=== PATIENT | male | born 1980 | race Caucasian/White ===

== ENCOUNTER 2019-12-04 21:28 | Emergency (ER) | payer SELFPAY ==
[~2019-12-04] VITALS: Ht 180.3 cm; Wt 97.0 kg
--- NOTE | 2019-12-04 22:00 | NUR ---
FIRST CONTACT WITH PT. PT REPORTS CONSTANT, SHARP EPIGASTRIC/RUQ PAIN X SEVERAL DAYS, PAIN RADIATES TO BACK. +NAUSEA. DENIES VOMITING/DIARRHEA/BLOOD IN EMESIS OR STOOL/FEVER. "I SIT ALL DAY AT WORK AND THAT SEEMS TO MAKE IT WORSE". HX OF JUN. PT REPORTS MODERATE ETOH USE, "I ROMERO FOR A LIVING- SO I DRINK THEN". BP/SPO2 MONITORING IN PLACE. VS WNL.
[2019-12-04 22:14] VITALS: BP 143/87
--- NOTE | 2019-12-04 22:21 | NUR ---
UA COLLECTED AND SENT TO LAB. PT CONTINUES TO DENY NEED FOR PAIN/NAUSEA MEDICATIONS.
[2019-12-04 22:29] LABS: MICROSCOPIC NOT IND
[2019-12-04 22:48] LABS: BASOPHILS # (AUTO) 0.04 x10^3/uL (0-0.1); BASOPHILS % (AUTO) 1 % (0-1); EOSINOPHILS # (AUTO) 0.13 x10^3/uL (0-0.4); EOSINOPHILS % (AUTO) 2 % (1-7); LYMPHOCYTES # (AUTO) 2.45 x10^3/uL (1-3.4); LYMPHOCYTES % (AUTO) 34 % (22-44); MD NO; MEAN CORPUSCULAR HEMOGLOBIN 29.9 pg (27.5-34.5); MEAN CORPUSCULAR HGB CONC 33.7 g/dL (33.2-36.2); MEAN CORPUSCULAR VOLUME 88.8 fL (81-97); MEAN PLATELET VOLUME 7.7 fL (7.4-10.4); MONOCYTES # (AUTO) 0.53 x10^3/uL (0.2-0.8); MONOCYTES % (AUTO) 7 % (2-9); NEUTROPHILS # (AUTO) 4.02 x10^3/uL (1.8-6.8); NEUTROPHILS % (AUTO) 56 % (42-75); PLATELET COUNT 262 x10^3/uL (130-400); RED BLOOD COUNT 4.89 x10^6/uL (4.38-5.82); RED CELL DISTRIBUTION WIDTH 12.7 % (9.4-14.8)
[2019-12-04 23:00] LABS: ALANINE AMINOTRANSFERASE 36 U/L (12-78); ANION GAP 6 mmol/L (5-15); CALCIUM 8.4 mg/dL (8.5-10.1); CHLORIDE 108 mmol/L (98-107); CREATININE 0.87 mg/dL (0.7-1.3)
[2019-12-04 23:02] LABS: ALKALINE PHOSPHATASE 55 U/L (45-117); BILIRUBIN,TOTAL 1.9 mg/dL (0.2-1.0); TOTAL PROTEIN 7.1 g/dL (6.4-8.2)
--- NOTE | 2019-12-04 23:42 | NUR ---
DC EDUCATION PROVIDED, PT DEMONSTRATES UNDERSTANDING. PT AMBULATED STEADILY TO DC WITH RN
== END 2019-12-04 23:44 | disposition home or self-care (01) ==
LOC: ED 22:21
DX: R10.11 Right upper quadrant pain (principal); Z90.89 Acquired absence of other organs; Z90.49 Acquired absence of other specified parts of digestive tract; F17.200 Nicotine dependence, unspecified, uncomplicated
CPT/HCPCS: 36415; 80053; 81003; 83690; 85025; 99283